=== PATIENT | male | born 1965 | race Caucasian/White ===

== ENCOUNTER 2019-12-21 10:46 | Observation (INO) ==
[2019-12-21] MEDS ORDERED: SODIUM CHLORIDE 0.9% 500 ML IV SCH (12:15)
[2019-12-21 12:25] LABS: Basophils # (auto) 0.01 K/uL (0-0.2); Basophils % (auto) 0.1 %; Eosinophils # (auto) 0.01 K/uL (0-0.5); Eosinophils % (auto) 0.1 %; Hematocrit (blood only) 43.7 % (42-52); Hemoglobin 15.2 g/dL (14.0-18.0); Immature Granulocytes # (auto) 0.03 K/uL (0.00-0.02); Immature Granulocytes % (auto) 0.2 %; Lymphocytes # (auto) 1.49 K/uL (1.2-3.4); Lymphocytes % (auto) 10.9 %; Mean Corpuscular Hemoglobin 29.1 pg (25-34); Mean Corpuscular Hgb Conc 34.8 g/dL (32-36); Mean Corpuscular Volume 83.6 fL (80-100); Mean Platelet Volume 10.4 fL (7.4-10.4); Monocytes # (auto) 0.62 K/uL (0.11-0.59); Monocytes % (auto) 4.5 %; Neutrophils # (auto) 11.52 K/uL (1.4-6.5); Neutrophils % (auto) 84.2 %; Platelet Count 188 K/uL (130-400); RDW Coefficient of Variation 13.5 % (11.5-14.5); RDW Standard Deviation 40.8 fL (36.4-46.3); Red Blood Count 5.23 M/uL (4.7-6.1); White Blood Count 13.68 K/uL (4.8-10.8)
[2019-12-21 12:34] LABS: Albumin Level 3.6 gm/dl (3.4-5.0); BUN Creatinine Ratio 11.2 (10-20); Calcium 8.6 mg/dl (8.5-10.1); Creatinine Clr Calc Pharmacy 128.4 ml/min; Est GFR (African American) 100.4; Est GFR (Non-African American) 86.6; Potassium 3.5 mmol/L (3.5-5.1)
[2019-12-21 12:37] LABS: Bilirubin,Total 1.2 mg/dl (0.2-1); Globulin 3.7 gm/dl (2.5-4.0); Total Protein 7.3 gm/dl (6.4-8.2)
--- NOTE | 2019-12-21 12:44 | Emergency Department Note ---
History of Present Illness General Chief Complaint: Abdominal Pain Stated Complaint: ABD PAIN Time Seen by Provider: 12/21/19 11:49 Source: patient Mode of arrival: ambulatory Limitations: no limitations History of Present Illness Provider Complaint: abdominal pain Maximum Pain Intensity: 6 This is a 54-year-old male who presents to the ED with a chief complaint of left upper quadrant abdominal pain. The patient states that it awoke him around 2 AM. He states that his abdomen felt as though he had to have diarrhea. He did not have any diarrhea and was able to fall back asleep. He awoke again at 4 AM with severe abdominal pain that he describes as a pressure. He states that he had a small bowel movement. He went back to sleep and then was awoken again with the pain around 6:30 AM. He describes it as a pressure rate now and 7 out of 10. It seemed to be worsening so he came to the ED for evaluation. The patient states that he occasionally has nausea with the pain but does not have nausea now. He states that it felt tender all over when he would push on it. The patient denies any abdominal surgeries previously. He takes medication for high blood pressure. Nothing seems to make the pain better or worse. Home Medications Home Medications Medication Instructions Recorded Confirmed Type Calcium And Magnesium For Bone 1 tab PO BID 12/21/19 12/21/19 History Sweet Elliott 2 tab PO HS 12/21/19 12/21/19 History Trace Minerals 1 oz PO BID 12/21/19 12/21/19 History cetirizine [Zyrtec] 10 mg PO HS 12/21/19 12/21/19 History cholecalciferol (vitamin D3) 125 mcg PO HS 12/21/19 12/21/19 History [Vitamin D3] coenzyme Q10 100 mg PO BID 12/21/19 12/21/19 History metoprolol succinate 100 mg PO QAM 12/21/19 12/21/19 History mometasone 1 spray INTRANASAL BID 12/21/19 12/21/19 History multivitamin 5 ml PO QAM 12/21/19 12/21/19 History omega 6-vih-vuh-fish oil [Fish Oil] 2 cap PO BID 12/21/19 12/21/19 History selenium 0 mcg PO QDD 12/21/19 12/21/19 History vitamin K2 40 mcg PO QDD 12/21/19 12/21/19 History Allergies Allergy/AdvReac Type Severity Reaction Status Date / Time No Known Allergies Allergy Unverified 12/21/19 13:39 Past Med/Surg History Social History Smoking Status: Never smoker Feels Safe at Home: Yes Review of Systems A total of 10 systems reviewed and were otherwise negative Physical Exam Vital Signs: Vital Signs - 24 hr 12/21/19 11:18 12/21/19 11:36 12/21/19 11:40 Temperature 36.8 C Temperature Source Oral Pulse Rate 90 77 74 Respiratory Rate 28 H 20 15 Blood Pressure 131/77 167/92 H Blood Pressure Rosemarie n 95 118 Pulse Oximetry 100 Oxygen Delivery Me thod Room Air Sepsis Recent Feve r Within 48 Hours No Sepsis New/Unexpla ined Change in Men amber Status N/A Sepsis Action Take n by Nursing No Action Required 12/21/19 11:51 12/21/19 12:00 12/21/19 12:10 Temperature Temperature Source Pulse Rate 76 78 76 Respiratory Rate Blood Pressure 183/92 H Blood Pressure Rosemarie n 109 Pulse Oximetry Oxygen Delivery Me thod Sepsis Recent Feve r Within 48 Hours Sepsis New/Unexpla ined Change in Men amber Status Sepsis Action Take n by Nursing 12/21/19 12:11 12/21/19 12:21 12/21/19 12:30 Temperature Temperature Source Pulse Rate 78 80 Respiratory Rate Blood Pressure 167/89 H Blood Pressure Rosemarie n 102 Pulse Oximetry Oxygen Delivery Me thod Room Air Sepsis Recent Feve r Within 48 Hours Sepsis New/Unexpla ined Change in Men amber Status Sepsis Action Take n by Nursing 12/21/19 12:46 12/21/19 12:51 12/21/19 13:00 Temperature Temperature Source Pulse Rate 81 79 79 Respiratory Rate 18 Blood Pressure 167/80 H Blood Pressure Rosemarie n 96 Pulse Oximetry Oxygen Delivery Me thod Sepsis Recent Feve r Within 48 Hours Sepsis New/Unexpla ined Change in Men amber Status Sepsis Action Take n by Nursing 12/21/19 13:10 12/21/19 13:20 12/21/19 13:30 Temperature Temperature Source Pulse Rate 80 83 84 Respiratory Rate 22 Blood Pressure 173/83 H Blood Pressure Rosemarie n 105 Pulse Oximetry Oxygen Delivery Me thod Sepsis Recent Feve r Within 48 Hours Sepsis New/Unexpla ined Change in Men amber Status Sepsis Action Take n by Nursing 12/21/19 13:32 12/21/19 13:40 Temperature Temperature Source Pulse Rate 82 78 Respiratory Rate Blood Pressure Blood Pressure Rosemarie n Pulse Oximetry Oxygen Delivery Ms thod Sepsis Recent Feve r Within 48 Hours Sepsis New/Unexpla ined Change in Men amber Status Sepsis Action Take n by Nursing Physical Exam: CONSTITUTIONAL/VITAL SIGNS: Reviewed / noted above. GENERAL: Non-toxic in appearance. INTEGUMENTARY: Warm, dry, and [place]. HEAD: Normocephalic. EYES: without scleral icterus or trauma. ENT/OROPHARYNX: clear and moist. LYMPHADENOPATHY/NECK: Is supple without lymphadenopathy or meningismus. RESPIRATORY: Lungs clear and equal. CARDIOVASCULAR: Regular rate and rhythm. GI/ABDOMEN: Soft and diffusely tender. No organomegaly or pulsatile mass. No rebound or guarding. Slightly hypoactive bowel sounds. EXTREMITIES: Warm and well perfused. BACK: No CVA tenderness. NEUROLOGICAL: Intact without focal deficits. PSYCHIATRIC: normal affect. MUSCULOSKELETAL: Normally developed with good muscle tone. TRIAGE NURSING DOCUMENTATION REVIEWED. Course Administered Medications Discontinued Medications Sodium Chloride (Nss) 500 mls @ 999 mls/hr IV .Q31M BABAR Stop: 12/21/19 12:45 Last Infusion: 12/21/19 14:15 Dose: 0 mls/hr Documented by: [id number] Admin: 12/21/19 13:22 Dose: 999 mls/hr Documented by: [id number] Medical Decision Making Differential Diagnosis Differential considered: pancreatitis, hepatitis, acute cholecystitis, AAA, UTI, pyelonephritis, kidney stones, appendicitis, diverticulitis, shingles, bowel obstruction, mesenteric ischemia, intussusception,hernia, testicular torsion. Medical Records Attestation: I reviewed the patient's medical records. Home Medications Current Medication List: was personally reviewed by me Laboratory Data Attestation: I reviewed the patient's lab results. Result diagrams: 12/21/19 11:33 12/21/19 11:33 Lab Results 12/21/19 12/21/19 Range/Units 11:33 11:33 WBC 13.68 H (4.8-10.8) K/uL RBC 5.23 (4.7-6.1) M/uL Hgb 15.2 (14.0-18.0) g/dL Hct 43.7 (42-52) % MCV 83.6 (80-100) fL MCH 29.1 (25-34) pg MCHC 34.8 (32-36) g/dL RDW Std Deviation 40.8 (36.4-46.3) fL RDW Coeff of Jona 13.5 (11.5-14.5) % Plt Count 188 (130-400) K/uL MPV 10.4 (7.4-10.4) fL Immature Gran % (Auto) 0.2 % Neut % (Auto) 84.2 % Lymph % (Auto) 10.9 % [place] % (Auto) 4.5 % Eos % (Auto) 0.1 % Baso % (Auto) 0.1 % Neut # (Auto) 11.52 H (1.4-6.5) K/uL Lymph # (Auto) 1.49 (1.2-3.4) K/uL [place] # (Auto) 0.62 H (0.11-0.59) K/uL Eos # (Auto) 0.01 (0-0.5) K/uL Baso # (Auto) 0.01 (0-0.2) K/uL Immature Gran # (Auto) 0.03 H (0.00-0.02) K/uL Sodium 138 (136-145) mmol/L Potassium 3.5 (3.5-5.1) mmol/L Chloride 107 (98-107) mmol/L Carbon Dioxide 22 (21-32) mmol/L Anion Gap 9.0 (3-11) BUN 11 (7-18) mg/dl Creatinine 0.99 (0.6-1.4) mg/dl Est Cr Clr Drug Dosing 128.4 ml/min Est GFR ( Amer) 100.4 Est GFR (Non-Af Amer) 86.6 BUN/Creatinine Ratio 11.2 (10-20) Glucose 139 H (70-99) mg/dl Calcium 8.6 (8.5-10.1) mg/dl Total Bilirubin 1.2 H (0.2-1) mg/dl AST 11 L (15-37) U/L ALT 32 (12-78) U/L Alkaline Phosphatase 65 (45-117) U/L Total Protein 7.3 (6.4-8.2) gm/dl Albumin 3.6 (3.4-5.0) gm/dl Globulin 3.7 (2.5-4.0) gm/dl Albumin/Globulin Ratio 1.0 (0.9-2) Lipase 101 (73-393) U/L Imaging Data Radiologist's Impression: IMPRESSION: CT findings indicative of acute appendicitis. Prescription Drug Monitoring [place] Drug Monitoring Program reviewed and no issues identified Blood Pressure Blood Pressure Findings: Normal blood pressure MDM Narrative The patient presents with diffuse abdominal pain that started at 2 AM. He had some associated nausea. A little diarrhea at 4 AM. Denies any other complaints at this time. The patient's blood work reveals a slight elevation of the white blood cell count. Chemistry panel was unremarkable. CT scan of the abdomen pelvis reveals acute appendicitis. I spoke with general surgery. They will see the patient. Impression & Plan Acute appendicitis Discharge Plan Visit Data Chief Complaint: Abdominal Pain Stated Complaint: ABD PAIN ED Provider: Tim Velasco Discharge Problem: Acute appendicitis Patient Disposition: Being Evaluated by Surgeon Forms Stand Alone Forms: My [facility] Prescriptions Prescriptions: No Action multivitamin Liquid 5 ml PO QAM RF: 0 cetirizine [Zyrtec] 10 mg Tablet 10 mg PO HS RF: 0 metoprolol succinate 100 mg tablet extended release 24 hr 100 mg PO QAM RF: 0 mometasone 50 mcg/actuation spray,non-aerosol 1 spray INTRANASAL BID RF: 0 coenzyme Q10 100 mg Capsule 100 mg PO BID RF: 0 omega 5-qrr-itt-fish oil [Fish Oil] 1,000 mg (120 mg-180 mg) Capsule 2 cap PO BID RF: 0 vitamin K2 40 mcg Tablet 40 mcg PO QDD RF: 0 Calcium And Magnesium For Bone 1 tab PO BID RF: 0 Trace Minerals 1 oz PO BID RF: 0 selenium 200 mcg Tablet 0 mcg PO QDD RF: 0 cholecalciferol (vitamin D3) [Vitamin D3] 125 mcg (5,000 unit) Tablet 125 mcg PO HS RF: 0 Sweet Elliott 2 tab PO HS RF: 0 Referrals Referrals: PCP,NO [Primary Care Provider] - Discharge Problem: Acute appendicitis Qualifiers: Acute appendicitis type: with generalized peritonitis Appendicitis gangrene presence: without gangrene Appendicitis perforation presence: unspecified whether perforation present Appendicitis abscess presence: without abscess Qualified Code(s): K35.20 - Acute appendicitis with generalized peritonitis, without abscess
--- NOTE | 2019-12-21 12:52 | CT Scan Report ---
CT SCAN OF THE ABDOMEN AND PELVIS WITHOUT CONTRAST CLINICAL HISTORY: diffuse abd pain COMPARISON STUDY: No previous studies for comparison. TECHNIQUE: CT scan of the abdomen and pelvis was performed from the lung bases to the proximal femurs . Images are reviewed in the axial, sagittal, and coronal planes. IV contrast was not administered fo r this examination. A dose lowering technique was utilized adhering to the principles of ALARA. CT DOSE: 1778.42 mGy.cm FINDINGS: Lower chest: There is respiratory motion artifact. There are basilar opacities statistically atelecta tic Liver: There is hepatic steatosis. No masses are visualized on this noncontrast study. Gallbladder: Unremarkable. Spleen: Normal in size and attenuation. Pancreas: Unremarkable. Adrenal glands: Unremarkable. Kidneys: No renal, ureteral, or bladder calculi are visualized. Bowel: There are no transition zones to indicate bowel obstruction. There is a dilated fluid-filled a ppendix containing an appendicolith. There is periappendiceal stranding. The appendix measures 16 mm in diameter. The findings are indicative of acute appendicitis. Peritoneum: There is no intraperitoneal free air or abdominal ascites. There is minimal upper abdomin al central mesenteric haziness. Vasculature: The abdominal aorta is normal in course and caliber. Adenopathy: None. Pelvic viscera: The bladder, and pelvic viscera are unremarkable. Skeletal structures: No destructive osseous lesions are seen. IMPRESSION: CT findings indicative of acute appendicitis. ACT 112: Negative or not required by law. Electronically signed by: Tu Garcia M.D. 12/21/2019 12:50 PM
--- NOTE | 2019-12-21 15:05 | Electrocardiogram Report ---
Test Reason : Blood Pressure : / mmHG Vent. Rate : 088 BPM Atrial Rate : 088 BPM P-R Int : 146 ms QRS Dur : 098 ms QT Int : 384 ms P-R-T Axes : 018 005 025 degrees QTc Int : 464 ms Normal sinus rhythm Normal ECG No previous ECGs available Confirmed by Brad Roldan ([id number]) on 12/21/2019 3:05:21 PM Referred By: REFERRED SELF Confirmed By:Brad Roldan
[2019-12-21] MEDS ORDERED: cefOXitin 2,000 MG in DEXTROSE 5% 50 ML IV STA (15:07)
--- NOTE | 2019-12-21 15:07 | History & Physical Report ---
Date of Service December 21, 2019 Assessment & Plan (1) Acute appendicitis: 54 year-old male with less than 24 hour history of sudden onset of generalized abdominal pain with associated nausea and diarrhea. Leukocytosis of 13k. CT scan of abd/pelvis showing dilated fluid-filled appendix measurin 16 mm with appendicolith and periappendiceal stranding consistent with acute appendicitis. Plan: Plan for laparoscopic appendectomy possible open with Dr. Grimaldo. Dr. Grimaldo discussed procedure and risks and informed consent obtained. Keep NPO 2 gms Cefoxitin preop Med/surg postop Likely discharge tomorrow if procedure straight forward. Dr. Grimaldo saw patient , examined patient, and agrees with above. I ( Yecenia Grimaldo MD ) did D/W with pt about laparoscopic appendectomy possible open, D/W benefits, risks and alternatives of the surgery, the risks - infection, bleeding, abscess, injury other organs, small bowel obstruction, pt understood, he agrees with the surgery, I answered all questions, History of Present Illness Chief Complaint: Abdominal pain Primary Care Provider: NO PCP Agustin is a 54 year-old male who presented to emergency department with complaint of abdominal pain that suddenly woke him up at night around 2 am originally. Continued to increase in severity throughout the night and not improve. Pain mostly generalized. Had some nausea but no vomiting. Had some diarrhea. Has not had this type of pain before. No prior abdominal surgeries. Has not had anything to eat since last evening and had 16 ounces of fluids this morning around 6 am. Er work-up included labs which showed leukocytosis of 13K. CT scan of abdomen and pelvis without contrast showing dilated appendix at 13 mm with appendicolith. No signs of perforation or abscess. Allergies Allergy/AdvReac Type Severity Reaction Status Date / Time No Known Allergies Allergy Unverified 12/21/19 13:39 Home Medications Home Medications Medication Instructions Recorded Confirmed Type Calcium And Magnesium For Bone 1 tab PO BID 12/21/19 12/21/19 History Sweet Elliott 2 tab PO HS 12/21/19 12/21/19 History Trace Minerals 1 oz PO BID 12/21/19 12/21/19 History cetirizine [Zyrtec] 10 mg PO HS 12/21/19 12/21/19 History cholecalciferol (vitamin D3) 125 mcg PO HS 12/21/19 12/21/19 History [Vitamin D3] coenzyme Q10 100 mg PO BID 12/21/19 12/21/19 History metoprolol succinate 100 mg PO QAM 12/21/19 12/21/19 History mometasone 1 spray INTRANASAL BID 12/21/19 12/21/19 History multivitamin 5 ml PO QAM 12/21/19 12/21/19 History omega 1-yen-kmj-fish oil [Fish Oil] 2 cap PO BID 12/21/19 12/21/19 History selenium 0 mcg PO QDD 12/21/19 12/21/19 History vitamin K2 40 mcg PO QDD 12/21/19 12/21/19 History Past Med/Surg History Medical History (Updated 12/21/19 @ 15:04 by Monik Parker PA-C) Hypertension Sleep apnea Social History Smoking Status: Never smoker Feels Safe at Home: Yes Review of Systems Review of Systems: All systems reviewed & are unremarkable except as noted in HPI & below Physical Exam Constitutional: WD/WN, vitals as above + morbidly obese; no acute distress and not ill appearing Respiratory: normal respiratory effort, lungs clear to auscultation Cardiovascular: Rate/Rhythm: regular rate, regular rhythm and + tachycardic Heart Sounds: normal S1 and normal S2 Gastrointestinal (Abdomen): Inspection/Auscultation: abdomen normal to inspection; abdomen not distended Percussion/Palpation: + abdomen tender and abdomen soft; no guarding and abdomen not rigid Skin: no rashes, warm and dry Psychiatric: A+Ox3, euthymic affect Results & Data Results & Data ([facility]) Vital Signs (Past 12 Hours) Vital Signs Temp Pulse Resp BP Pulse Ox 12/21/19 13:40 78 12/21/19 13:32 82 12/21/19 13:30 84 173/83 H 12/21/19 13:20 83 22 12/21/19 13:10 80 12/21/19 13:00 79 167/80 H 12/21/19 12:51 79 18 12/21/19 12:46 81 12/21/19 12:30 80 167/89 H 12/21/19 12:21 78 12/21/19 12:10 76 12/21/19 12:00 78 183/92 H 12/21/19 11:51 76 12/21/19 11:40 74 15 12/21/19 11:36 77 20 167/92 H 12/21/19 11:18 36.8 C 90 28 H 131/77 100 Laboratory Results 12/21/19 12/21/19 Range/Units 11:33 11:33 WBC 13.68 H (4.8-10.8) K/uL RBC 5.23 (4.7-6.1) M/uL Hgb 15.2 (14.0-18.0) g/dL Hct 43.7 (42-52) % MCV 83.6 (80-100) fL MCH 29.1 (25-34) pg MCHC 34.8 (32-36) g/dL RDW Std Deviation 40.8 (36.4-46.3) fL RDW Coeff of Jona 13.5 (11.5-14.5) % Plt Count 188 (130-400) K/uL MPV 10.4 (7.4-10.4) fL Immature Gran % (Auto) 0.2 % Neut % (Auto) 84.2 % Lymph % (Auto) 10.9 % [place] % (Auto) 4.5 % Eos % (Auto) 0.1 % Baso % (Auto) 0.1 % Neut # (Auto) 11.52 H (1.4-6.5) K/uL Lymph # (Auto) 1.49 (1.2-3.4) K/uL [place] # (Auto) 0.62 H (0.11-0.59) K/uL Eos # (Auto) 0.01 (0-0.5) K/uL Baso # (Auto) 0.01 (0-0.2) K/uL Immature Gran # (Auto) 0.03 H (0.00-0.02) K/uL Sodium 138 (136-145) mmol/L Potassium 3.5 (3.5-5.1) mmol/L Chloride 107 (98-107) mmol/L Carbon Dioxide 22 (21-32) mmol/L Anion Gap 9.0 (3-11) BUN 11 (7-18) mg/dl Creatinine 0.99 (0.6-1.4) mg/dl Est Cr Clr Drug Dosing 128.4 ml/min Est GFR ( Amer) 100.4 Est GFR (Non-Af Amer) 86.6 BUN/Creatinine Ratio 11.2 (10-20) Glucose 139 H (70-99) mg/dl Calcium 8.6 (8.5-10.1) mg/dl Total Bilirubin 1.2 H (0.2-1) mg/dl AST 11 L (15-37) U/L ALT 32 (12-78) U/L Alkaline Phosphatase 65 (45-117) U/L Total Protein 7.3 (6.4-8.2) gm/dl Albumin 3.6 (3.4-5.0) gm/dl Globulin 3.7 (2.5-4.0) gm/dl Albumin/Globulin Ratio 1.0 (0.9-2) Lipase 101 (73-393) U/L Diagnostic Findings CT SCAN OF THE ABDOMEN AND PELVIS WITHOUT CONTRAST CLINICAL HISTORY: diffuse abd pain COMPARISON STUDY: No previous studies for comparison. TECHNIQUE: CT scan of the abdomen and pelvis was performed from the lung bases to the proximal femurs. Images are reviewed in the axial, sagittal, and coronal planes. IV contrast was not administered for this examination. A dose lowering technique was utilized adhering to the principles of ALARA. CT DOSE: 1778.42 mGy.cm FINDINGS: Lower chest: There is respiratory motion artifact. There are basilar opacities statistically atelectatic Liver: There is hepatic steatosis. No masses are visualized on this noncontrast study. Gallbladder: Unremarkable. Spleen: Normal in size and attenuation. Pancreas: Unremarkable. Adrenal glands: Unremarkable. Kidneys: No renal, ureteral, or bladder calculi are visualized. Bowel: There are no transition zones to indicate bowel obstruction. There is a dilated fluid-filled appendix containing an appendicolith. There is periappendiceal stranding. The appendix measures 16 mm in diameter. The findings are indicative of acute appendicitis. Peritoneum: There is no intraperitoneal free air or abdominal ascites. There is minimal upper abdominal central mesenteric haziness. Vasculature: The abdominal aorta is normal in course and caliber. Adenopathy: None. Pelvic viscera: The bladder, and pelvic viscera are unremarkable. Skeletal structures: No destructive osseous lesions are seen. IMPRESSION: CT findings indicative of acute appendicitis. Code Status & VTE Plan VTE Prophylaxis Plan VTE Prophylaxis will be ordered: Yes (1) Acute appendicitis Acute appendicitis type: with generalized peritonitis Appendicitis abscess presence: without abscess Appendicitis gangrene presence: without gangrene Appendicitis perforation presence: unspecified whether perforation present Qualified Code(s): K35.20 - Acute appendicitis with generalized peritonitis, without abscess
[2019-12-21] MEDS ORDERED: BACITRACIN OINT 15 GM TUBE ONE (16:49)
[2019-12-21] MEDS ORDERED: BUPIVACAINE 0.5 % 5 MG/1 ML MPF 30ML VIAL ONE (16:50)
[2019-12-21] MEDS ORDERED: LIDOCAINE HCL 1% 20 ML VIAL ONE (16:50)
[2019-12-21] MEDS ORDERED: ONDANSETRON INJ 2 MG/ML 2 ML VIAL IV PRN ×2 (17:26→19:00)
[2019-12-21] MEDS ORDERED: ATROPINE SULFATE 0.1 MG/ML 10ML SYR IV PRN (17:26)
[2019-12-21] MEDS ORDERED: PROMETHAZINE HCL 12.5 MG in SODIUM CHLORIDE 0.9% 50 ML IV PRN (17:26)
[2019-12-21] MEDS ORDERED: ePHEDrine sulfate 50 MG/ML AMP IV PRN (17:26)
[2019-12-21] MEDS ORDERED: HYDROmorphone INJ 2 MG/ML SYR/VIAL IV PRN (17:26)
[2019-12-21] MEDS ORDERED: fentaNYL citrate 100 MCG/2 ML VIAL IV PRN (17:26)
--- NOTE | 2019-12-21 17:26 | Anesthesiology Consultation ---
Date of Service December 21, 2019 Assessment & Plan ASA ASA3 Proposed Anesthesia Anesthesia Type: General Risk / Benefits Reviewed With: PT / POA / Parent / Guardian, Accepts Plan and Informed Consent Obtained History Surgery Operation Date: 12/21/19 11:55 Proposed Procedures p Laparoscopic Appendectomy - Yecenia Grimaldo MD Height/Weight Height: 5 ft 11 in Weight: 150 kg Allergies Allergy/AdvReac Type Severity Reaction Status Date / Time No Known Allergies Allergy Unverified 12/21/19 13:39 Medications Home Medications Medication Instructions Recorded Confirmed Last Taken Calcium And Magnesium For Bone 1 tab PO BID 12/21/19 12/21/19 12/20/19 Sweet Elliott 2 tab PO HS 12/21/19 12/21/19 12/20/19 Trace Minerals 1 oz PO BID 12/21/19 12/21/19 12/20/19 cetirizine [Zyrtec] 10 mg PO HS 12/21/19 12/21/19 12/20/19 cholecalciferol (vitamin D3) 125 mcg PO HS 12/21/19 12/21/19 12/20/19 [Vitamin D3] coenzyme Q10 100 mg PO BID 12/21/19 12/21/19 12/20/19 metoprolol succinate 100 mg PO QAM 12/21/19 12/21/19 12/20/19 mometasone 1 spray INTRANASAL BID 12/21/19 12/21/19 12/20/19 multivitamin 5 ml PO QAM 12/21/19 12/21/19 12/20/19 omega 5-owv-nro-fish oil [Fish Oil] 2 cap PO BID 12/21/19 12/21/19 12/20/19 selenium 0 mcg PO QDD 12/21/19 12/21/19 12/20/19 vitamin K2 40 mcg PO QDD 12/21/19 12/21/19 12/20/19 NPO Date Last Intake of Fluids: 12/21/19 Time Last Intake of Fluids: 07:30 Date Last Intake of Solids: 12/20/19 Time Last Intake of Solids: 18:00 Past Medical History Medical History Hypertension Sleep apnea Exercise / Class Metabolic Activity II 4-5 Yardwork/Stairs/Walk up hill Past Anesthesia History No Hx of Anesthesia Complications and No Family Hx of Anesthesia Complications History of PONV No Hx of PONV and No Hx of Motion Sickness Social History Smoking Status: Never smoker Review of Systems denies fever/cough/ colds/ chest pain/ SOB/ WALTER Constitutional: no fever and no chills Respiratory: no cough and no dyspnea denies WALTER Cardiovascular: no chest pain and no dyspnea on exertion Physical Exam Vital Signs Last Vital Signs Temp 37.3 C 12/21/19 17:09 Pulse 102 H 12/21/19 17:09 Resp 18 12/21/19 17:09 BP 199/106 H 12/21/19 17:09 Pulse Ox 98 12/21/19 17:09 ENMT Mouth: no TMJ abnormality and no dentition abnormality Thyromental Distance: > or= 3.5 Finger Breadths Mallampati Class: II Neck + thick neck and + facial hair; neck extension not limited Respiratory normal respiratory effort; no respiratory distress Auscultation: lungs clear to auscultation bilaterally Cardiovascular Rate/Rhythm: regular rate and regular rhythm Neurologic moves all extremities Psychiatric Orientation: alert and oriented x 3 Testing Laboratory Results 12/21/19 11:33 12/21/19 11:33
[2019-12-21] MEDS ORDERED: fentaNYL citrate 100 MCG/2 ML VIAL ONE ×2 (17:42→18:08)
[2019-12-21] MEDS ORDERED: PROPOFOL IV EMULSION 10 MG/ML 20 ML VIAL IV ONE (17:42)
[2019-12-21] MEDS ORDERED: LIDOCAINE 2% 20 MG/ML 5 ML SYR IV ONE (17:42)
[2019-12-21] MEDS ORDERED: MIDAZOLAM HCL 1 MG/ML 2ML VIAL ONE (17:42)
[2019-12-21] MEDS ORDERED: ROCURONIUM BROMIDE 10 MG/ML 5 ML VIAL IV ONE (17:42)
[2019-12-21] MEDS ORDERED: SUCCINYLCHOLINE 100MG/5ML SYR IV ONE (18:08)
[2019-12-21] MEDS ORDERED: KETOROLAC 30 MG/ML VIAL ONE (18:08)
[2019-12-21] MEDS ORDERED: DEXAMETHASONE SOD INJ 4 MG/ML VIAL ONE (18:08)
[2019-12-21] MEDS ORDERED: SUCCINYLCHOLINE CHLORIDE 20 MG/ML 10 ML VIAL IV ONE (18:08)
[2019-12-21] MEDS ORDERED: ONDANSETRON INJ 2 MG/ML 2 ML VIAL ONE (18:08)
[2019-12-21] MEDS ORDERED: LARYING-O-JET KIT (LTA) ONE (18:09)
[2019-12-21] MEDS ORDERED: LABETALOL HCL IV 5 MG/ML 20ML IV ONE (18:25)
[2019-12-21] MEDS ORDERED: NEOSTIGMINE METHYLSULFATE 5 MG/5 ML SYR ONE (18:43)
[2019-12-21] MEDS ORDERED: GLYCOPYRROLATE 0.2 MG/ML VIAL ONE (18:43)
--- NOTE | 2019-12-21 18:55 | Post Operative Brief Note ---
Immediate Post Op Note v1 Date of Surgery December 21, 2019 Pre & Post Diagnosis Operation Date: 12/21/19 11:55 Pre-Op Diagnosis: Acute appendicitis post-op diagnosis: acute appendicitis I identified the patient and participated in the time-out.: Yes Procedure Operation Date: 12/21/19 11:55 Actual Procedures p Laparoscopic Appendectomy - Yecenia Grimaldo MD Surgeon Yecenia Grimaldo MD Supervisor Sample surgical endoscopist Estimated Blood Loss 10 Findings Consistent with Post-Op Diagnosis significant inflammation on appendix, focal gangrene, yellow free fluid around appendix, acute appendicitis Fluids 1400ml Specimens appendix Anesthesia Type General Complications none Disposition Accompanied Patient To Recovery: Yes Disposition: Recovery Room Overlapping Procedure I was immediately available: during the entire case.
[2019-12-21] MEDS ORDERED: MEPERIDINE HCL 25 MG/ML CARP/VIAL ONE (19:05)
[2019-12-21] MEDS ORDERED: MEPERIDINE HCL 25 MG/ML CARP/VIAL IV ONE (19:09)
--- NOTE | 2019-12-21 20:24 | Anesthesiology Progress Note ---
Date of Service December 21, 2019 Anesthesia Post Procedure Vital Signs Vital Signs: Temp Pulse Pulse Resp BP BP Pulse Ox 12/21/19 20:00 93 H 16 149/84 H 97 12/21/19 19:50 37.3 C 88 16 150/84 H 97 12/21/19 19:40 90 20 137/80 99 12/21/19 19:30 99 H 20 149/84 H 95 12/21/19 19:20 98 H 22 165/85 H 99 12/21/19 19:10 96 H 20 164/87 H 99 12/21/19 19:01 37.6 C H 97 H 22 167/112 H 98 12/21/19 17:09 37.3 C 102 H 18 199/106 H 98 12/21/19 16:53 88 195/88 H 12/21/19 16:50 89 17 12/21/19 16:41 88 15 12/21/19 16:31 88 201/89 H 12/21/19 16:30 83 14 12/21/19 16:20 88 19 12/21/19 16:11 95 H 24 12/21/19 16:00 96 H 15 176/88 H 12/21/19 15:57 91 H 16 175/94 H 12/21/19 15:50 78 17 12/21/19 15:41 79 4 L 12/21/19 15:31 93 H 9 L 12/21/19 15:20 91 H 13 12/21/19 15:10 94 H 19 12/21/19 15:01 92 H 13 12/21/19 14:50 95 H 10 L 12/21/19 14:40 96 H 16 12/21/19 14:31 91 H 21 12/21/19 14:20 88 17 12/21/19 14:10 91 H 21 12/21/19 14:01 83 12/21/19 14:00 87 176/85 H 12/21/19 13:50 77 12/21/19 13:40 78 12/21/19 13:32 82 12/21/19 13:30 84 173/83 H 12/21/19 13:20 83 22 12/21/19 13:10 80 12/21/19 13:00 79 167/80 H 12/21/19 12:51 79 18 12/21/19 12:46 81 12/21/19 12:30 80 167/89 H 12/21/19 12:21 78 12/21/19 12:10 76 12/21/19 12:00 78 183/92 H 12/21/19 11:51 76 12/21/19 11:40 74 15 12/21/19 11:36 77 20 167/92 H 12/21/19 11:18 36.8 C 90 28 H 131/77 100 Pain Intensity Abdomen: Pain Intensity: 0 Transfer of Care Handoff Completed per policy Notes Mental Status: alert / awake / arousable and participated in evaluation Patient Amnestic to Procedure: Yes Nausea / Vomiting: adequately controlled Pain: adequately controlled Airway Patency, RR, SpO2: stable & adequate BP & HR: stable & adequate Hydration State: stable & adequate Anesthetic Complications: no major complications apparent and Pt Satisfied with anesthetic care
[2019-12-21] MEDS ORDERED: HYDROmorphone INJ 1 MG/ML SYRINGE IV STA (20:58)
[2019-12-21] MEDS ORDERED: OXYCODONE/ACETAMINOPHEN 5mg/325mg TAB PO PRN (20:58)
[2019-12-21] MEDS ORDERED: CHOLECALCIFEROL 1,000 UNITS 25 MCG TAB PO SCH (21:00)
[2019-12-21] MEDS ORDERED: CETIRIZINE HCL 10 MG TABLET PO SCH (21:00)
[2019-12-21] MEDS ORDERED: NON-FORMULARY MEDICATION (Coenzyme Q10 100 MG) PO SCH (21:00)
[2019-12-21] MEDS ORDERED: [UNRECOGNIZED DRUG - OTHER] PO SCH (21:00)
[2019-12-21] MEDS ORDERED: TRACE MINERALS PO SCH (21:00)
[2019-12-21] MEDS: OMEGA-3 (PURIFIED FISH OIL) 1 GM CAP PO SCH (21:37)
[2019-12-21] MEDS: CALCIUM 600MG + VIT D 400 IU TAB PO SCH (21:37)
[2019-12-21] MEDS: LACTATED RINGER'S 1,000 ML IV SCH (22:30)
[2019-12-21] MEDS: cefOXitin 2,000 MG in DEXTROSE 5% 50 ML IV SCH (23:40)
--- NOTE | 2019-12-22 02:33 | Operative Report (OR) ---
DATE OF OPERATION: 12/21/2019 PREOPERATIVE DIAGNOSIS: Acute appendicitis. POSTOPERATIVE DIAGNOSIS: Acute appendicitis. OPERATION: Laparoscopic appendectomy. SURGEON: Yecenia Grimaldo MD. ANESTHESIA: General. ESTIMATED BLOOD LOSS: About 10 mL FINDINGS: Significant inflammation on the appendix, focal gangrene, yellow free flow around the appendix, confirmed diagnosis of acute appendicitis. COMPLICATIONS: None. INDICATIONS FOR THE PROCEDURE: This is a 54-year-old gentleman who presented to ED with 1-day history of right lower quadrant pain and patient had a CT scan diagnosis of acute appendicitis. I recommended to do the laparoscopic appendectomy, possible open. I did talk to the patient and patient's about the benefit, the risk, alternate procedure. I indicated the risks may include but not limited such as bleeding, infection, abscess, injury to other organs, small-bowel obstruction. They understand. The patient signed informed consent and I answered all questions. DETAILS OF PROCEDURE: We brought the patient to the OR, put the patient in the supine position. The patient received SCD on bilateral legs to prevent DVT. Also, patient received 2 g cefoxitin IV for prophylactic antibiotic. The patient received general anesthesia without difficulty. The abdomen was prepped and draped in routine sterile fashion. After time-out, I injected local anesthesia by using 1% lidocaine mixed with 0.5% Marcaine just above the umbilicus. Then I made a small incision just above the umbilicus, opened fascia and opened peritoneum, under direct vision put a Iris trocar in, connected to CO2 to create pneumoperitoneum. Flow rate at 6 liter per minute. Pressure not more than 14 mmHg. Once we got a nice pneumoperitoneum, we put the camera in, looked around the abdomen, shows significant inflammation on the appendix, enlarged about 1.4 cm in diameter and focal gangrene, yellow free flow around the appendix, small bowel, large bowel looked normal. Once we confirmed diagnosis of acute appendicitis and I put another two 5 mm trocar on the left lower quadrant area, then we mobilized the appendix and used the harmonic to take down appendiceal, rechecked the base of appendix and then we used a 45 mm Endo-FELA staple for transection on the base of the appendix, rechecked the staple line intact and no leak, no active bleeding. Then we removed the appendix through the catch bag. Then we reinserted Iris trocar in, connected to CO2 again to create pneumoperitoneum, again looked around the abdomen, the staple line intact and no leak and no active bleeding and also we suctioned all of the yellow free flow around the appendix before we took out the appendix. Then we removed all trocar under direct vision. No active bleeding from the trocar sites. Pneumoperitoneum was released, now closed the umbilical incision, fascial layer by using #1 Vicryl [id number] x2, closed subcutaneous layer by using 2-0 Vicryl interruptedly, closed skin by using 4-0 Vicryl continuous running, closed another two 5 mm trocar site of skin only by using 4-0 Vicryl. Then, we put the dressing on. The patient tolerated the procedure well. All instrument, needle and sponge count correct x2 at the end of the case. The patient transferred to recovery room in stable condition. The specimen sent to pathology. After the procedure, I did talk to the patient's about the OR finding and procedure we did, she understands. I attest to the content of the Intraoperative Record and any orders documented therein. Any exception s are noted below.
[2019-12-22 03:22] LABS: Appearance Urine Clear (Clear); Bilirubin Urine Negative (Negative); Blood Urine Negative (Negative); Color Urine Dark Yellow; Glucose Urine UA Negative (Negative); Ketones Urine 1+ (Negative); Leukocyte Esterase Urine Negative (Negative); Nitrite Urine Negative (Negative); Protein Urine Negative (Negative); Specific Gravity Urine 1.027 (1.000-1.030); Urobilinogen Urine Negative (Negative)
[2019-12-22] MEDS: cefOXitin 2,000 MG in DEXTROSE 5% 50 ML IV SCH ×2 (06:00→12:39)
[2019-12-22 06:17] LABS: Hematocrit (blood only) 41.4 % (42-52); Hemoglobin 14.2 g/dL (14.0-18.0); Immature Granulocytes # (auto) 0.04 K/uL (0.00-0.02); Immature Granulocytes % (auto) 0.3 %; Lymphocytes # (auto) 0.94 K/uL (1.2-3.4); Lymphocytes % (auto) 7.6 %; Mean Corpuscular Hemoglobin 29.2 pg (25-34); Mean Corpuscular Hgb Conc 34.3 g/dL (32-36); Mean Platelet Volume 10.6 fL (7.4-10.4); Monocytes # (auto) 0.63 K/uL (0.11-0.59); Monocytes % (auto) 5.1 %; Neutrophils # (auto) 10.71 K/uL (1.4-6.5); Platelet Count 165 K/uL (130-400); RDW Coefficient of Variation 13.6 % (11.5-14.5); Red Blood Count 4.87 M/uL (4.7-6.1); White Blood Count 12.32 K/uL (4.8-10.8)
[2019-12-22 06:52] LABS: BUN Creatinine Ratio 13.3 (10-20); Calcium 8.2 mg/dl (8.5-10.1); Creatinine Clr Calc Pharmacy 138.1 ml/min; Est GFR (African American) 109.7; Est GFR (Non-African American) 94.6; Potassium 3.8 mmol/L (3.5-5.1)
[2019-12-22 06:55] LABS: Albumin Globulin Ratio 0.9 (0.9-2); Bilirubin,Total 0.9 mg/dl (0.2-1); Globulin 3.4 gm/dl (2.5-4.0); Total Protein 6.4 gm/dl (6.4-8.2)
[2019-12-22] MEDS ORDERED: ACETAMINOPHEN 325 MG TAB PO PRN (08:32)
--- NOTE | 2019-12-22 08:37 | Surgery Progress Note ---
Date of Service December 22, 2019 Assessment & Plan (1) Acute appendicitis: POD # 1 s/p laparoscopic appendectomy -vitals stable, afebrile this am, HTN this am has not had home metoprolol - leukocytosis improved to 12K - no n/v - minimal postop pain Plan: Okay for clear liquids will add PO Tylenol prn pain continue iv LR for now Continue IV Cefoxitin until discharge encouraged ambulating hallway may start home PO Meds now including metoprolol will re-evaluate later this morning with Dr. Grimaldo Evaluated with Dr. Grimaldo. Tolerated clear liquids ambulated hallway 8 times, no issues no postop pain feeling great plan for discharge home, home with 5 days of PO Cipro/flagyl f/u 2 weeks Admission and Anticipated Discharge Date Admission Date: December 21, 2019 Subjective Feeling good preoperative upper abdominal pain has resolved soreness at incision sites, has not had any pain medication postop no nausea or vomiting urinated but only small amount no chest pain/shortness of breath Physical Exam Constitutional: WD/WN, vitals as above + morbidly obese Respiratory: normal respiratory effort; no respiratory distress Gastrointestinal (Abdomen): Inspection/Auscultation: abdomen normal to insp ection; abdomen not distended Percussion/Palpation: + abdomen tender (mildly at incision sites, appropriate postop) and abdomen soft; no guarding and abdomen not rigid Skin: no rashes, warm and dry + incision (covered with dry dressings) Psychiatric: A+Ox3, euthymic affect Results & Data ([facility]) Vital Signs (Past 12 Hours) Vital Signs Temp Pulse Resp BP Pulse Ox 12/22/19 07:16 36.5 C 82 16 162/84 H 95 12/22/19 03:03 36.5 C 90 16 141/82 H 96 12/21/19 23:19 37.0 C 106 H 16 154/80 H 96 12/21/19 22:27 37.2 C 102 H 17 143/89 H 93 12/21/19 21:24 36.8 C 92 H 16 143/85 H 98 12/21/19 20:56 37.6 C H 99 H 17 149/84 H 93 Laboratory Results 12/22/19 12/22/19 12/22/19 Range/Units 05:56 05:56 03:15 WBC 12.32 H (4.8-10.8) K/uL RBC 4.87 (4.7-6.1) M/uL Hgb 14.2 (14.0-18.0) g/dL Hct 41.4 L (42-52) % MCV 85.0 (80-100) fL MCH 29.2 (25-34) pg MCHC 34.3 (32-36) g/dL RDW Std Deviation 42.0 (36.4-46.3) fL RDW Coeff of Jona 13.6 (11.5-14.5) % Plt Count 165 (130-400) K/uL MPV 10.6 H (7.4-10.4) fL Immature Gran % (Auto) 0.3 % Neut % (Auto) 87.0 % Lymph % (Auto) 7.6 % Orange % (Auto) 5.1 % Eos % (Auto) 0.0 % Baso % (Auto) 0.0 % Neut # (Auto) 10.71 H (1.4-6.5) K/uL Lymph # (Auto) 0.94 L (1.2-3.4) K/uL Orange # (Auto) 0.63 H (0.11-0.59) K/uL Eos # (Auto) 0.00 (0-0.5) K/uL Baso # (Auto) 0.00 (0-0.2) K/uL Immature Gran # (Auto) 0.04 H (0.00-0.02) K/uL Sodium 141 (136-145) mmol/L Potassium 3.8 (3.5-5.1) mmol/L Chloride 107 (98-107) mmol/L Carbon Dioxide 28 (21-32) mmol/L Anion Gap 6.0 (3-11) BUN 12 (7-18) mg/dl Creatinine 0.92 (0.6-1.4) mg/dl Est Cr Clr Drug Dosing 138.1 ml/min Est GFR ( Amer) 109.7 Est GFR (Non-Af Amer) 94.6 BUN/Creatinine Ratio 13.3 (10-20) Glucose 156 H (70-99) mg/dl Calcium 8.2 L (8.5-10.1) mg/dl Total Bilirubin 0.9 (0.2-1) mg/dl AST 10 L (15-37) U/L ALT 25 (12-78) U/L Alkaline Phosphatase 54 (45-117) U/L Total Protein 6.4 (6.4-8.2) gm/dl Albumin 3.0 L (3.4-5.0) gm/dl Globulin 3.4 (2.5-4.0) gm/dl Albumin/Globulin Ratio 0.9 (0.9-2) Lipase (73-393) U/L Urine Color Dark Yellow Urine Appearance Clear (Clear) Urine pH 6.0 (4.5-7.5) Ur Specific [place] 1.027 (1.000-1.030) Urine Protein Negative (Negative) Urine Glucose (UA) Negative (Negative) Urine Ketones 1+ H (Negative) Urine Blood Negative (Negative) Urine Nitrite Negative (Negative) Urine Bilirubin Negative (Negative) Urine Urobilinogen Negative (Negative) Ur Leukocyte Esterase Negative (Negative) COVID-19 Eval Order SARS-CoV-2, RNA, NAAT (NEGATIVE) 12/21/19 12/21/19 12/21/19 Range/Units 16:20 16:20 11:33 WBC (4.8-10.8) K/uL RBC (4.7-6.1) M/uL Hgb (14.0-18.0) g/dL Hct (42-52) % MCV (80-100) fL MCH (25-34) pg MCHC (32-36) g/dL RDW Std Deviation (36.4-46.3) fL RDW Coeff of Jona (11.5-14.5) % Plt Count (130-400) K/uL MPV (7.4-10.4) fL Immature Gran % (Auto) % Neut % (Auto) % Lymph % (Auto) % Orange % (Auto) % Eos % (Auto) % Baso % (Auto) % Neut # (Auto) (1.4-6.5) K/uL Lymph # (Auto) (1.2-3.4) K/uL Orange # (Auto) (0.11-0.59) K/uL Eos # (Auto) (0-0.5) K/uL Baso # (Auto) (0-0.2) K/uL Immature Gran # (Auto) (0.00-0.02) K/uL Sodium 138 (136-145) mmol/L Potassium 3.5 (3.5-5.1) mmol/L Chloride 107 (98-107) mmol/L Carbon Dioxide 22 (21-32) mmol/L Anion Gap 9.0 (3-11) BUN 11 (7-18) mg/dl Creatinine 0.99 (0.6-1.4) mg/dl Est Cr Clr Drug Dosing 128.4 ml/min Est GFR ( Amer) 100.4 Est GFR (Non-Af Amer) 86.6 BUN/Creatinine Ratio 11.2 (10-20) Glucose 139 H (70-99) mg/dl Calcium 8.6 (8.5-10.1) mg/dl Total Bilirubin 1.2 H (0.2-1) mg/dl AST 11 L (15-37) U/L ALT 32 (12-78) U/L Alkaline Phosphatase 65 (45-117) U/L Total Protein 7.3 (6.4-8.2) gm/dl Albumin 3.6 (3.4-5.0) gm/dl Globulin 3.7 (2.5-4.0) gm/dl Albumin/Globulin Ratio 1.0 (0.9-2) Lipase 101 (73-393) U/L Urine Color Urine Appearance (Clear) Urine pH (4.5-7.5) Ur Specific [place] (1.000-1.030) Urine Protein (Negative) Urine Glucose (UA) (Negative) Urine Ketones (Negative) Urine Blood (Negative) Urine Nitrite (Negative) Urine Bilirubin (Negative) Urine Urobilinogen (Negative) Ur Leukocyte Esterase (Negative) COVID-19 Eval Order Covid19 [facility]Now [facility] SARS-CoV-2, RNA, NAAT NEGATIVE (NEGATIVE) 12/21/19 Range/Units 11:33 WBC 13.68 H (4.8-10.8) K/uL RBC 5.23 (4.7-6.1) M/uL Hgb 15.2 (14.0-18.0) g/dL Hct 43.7 (42-52) % MCV 83.6 (80-100) fL MCH 29.1 (25-34) pg MCHC 34.8 (32-36) g/dL RDW Std Deviation 40.8 (36.4-46.3) fL RDW Coeff of Jona 13.5 (11.5-14.5) % Plt Count 188 (130-400) K/uL MPV 10.4 (7.4-10.4) fL Immature Gran % (Auto) 0.2 % Neut % (Auto) 84.2 % Lymph % (Auto) 10.9 % Orange % (Auto) 4.5 % Eos % (Auto) 0.1 % Baso % (Auto) 0.1 % Neut # (Auto) 11.52 H (1.4-6.5) K/uL Lymph # (Auto) 1.49 (1.2-3.4) K/uL Orange # (Auto) 0.62 H (0.11-0.59) K/uL Eos # (Auto) 0.01 (0-0.5) K/uL Baso # (Auto) 0.01 (0-0.2) K/uL Immature Gran # (Auto) 0.03 H (0.00-0.02) K/uL Sodium (136-145) mmol/L Potassium (3.5-5.1) mmol/L Chloride (98-107) mmol/L Carbon Dioxide (21-32) mmol/L Anion Gap (3-11) BUN (7-18) mg/dl Creatinine (0.6-1.4) mg/dl Est Cr Clr Drug Dosing ml/min Est GFR ( Amer) Est GFR (Non-Af Amer) BUN/Creatinine Ratio (10-20) Glucose (70-99) mg/dl Calcium (8.5-10.1) mg/dl Total Bilirubin (0.2-1) mg/dl AST (15-37) U/L ALT (12-78) U/L Alkaline Phosphatase (45-117) U/L Total Protein (6.4-8.2) gm/dl Albumin (3.4-5.0) gm/dl Globulin (2.5-4.0) gm/dl Albumin/Globulin Ratio (0.9-2) Lipase (73-393) U/L Urine Color Urine Appearance (Clear) Urine pH (4.5-7.5) Ur Specific [place] (1.000-1.030) Urine Protein (Negative) Urine Glucose (UA) (Negative) Urine Ketones (Negative) Urine Blood (Negative) Urine Nitrite (Negative) Urine Bilirubin (Negative) Urine Urobilinogen (Negative) Ur Leukocyte Esterase (Negative) COVID-19 Eval Order SARS-CoV-2, RNA, NAAT (NEGATIVE) (1) Acute appendicitis Acute appendicitis type: with generalized peritonitis Appendicitis abscess presence: without abscess Appendicitis gangrene presence: without gangrene Appendicitis perforation presence: unspecified whether perforation present Qualified Code(s): K35.20 - Acute appendicitis with generalized peritonitis, without abscess
[2019-12-22] MEDS: OMEGA-3 (PURIFIED FISH OIL) 1 GM CAP PO SCH (08:50)
[2019-12-22] MEDS: CALCIUM 600MG + VIT D 400 IU TAB PO SCH (08:52)
[2019-12-22] MEDS ORDERED: MULTIVITAMINS W/MINERALS LIQUID PO SCH (09:00)
[2019-12-22] MEDS ORDERED: METOPROLOL SUCC 50MG EXT REL TAB PO SCH (09:00)
[2019-12-22] MEDS ORDERED: FLUTICASONE PROPIONATE NA SPR 16 GM BTL SCH (09:00)
[2019-12-22] MEDS: LACTATED RINGER'S 1,000 ML IV SCH (09:36)
--- NOTE | 2019-12-22 11:07 | Discharge Summary ---
Date of Service December 22, 2019 Admission HPI Per Admitting Provider Agustin is a 54 year-old male who presented to emergency department with complaint of abdominal pain that suddenly woke him up at night around 2 am originally. Continued to increase in severity throughout the night and not improve. Pain mostly generalized. Had some nausea but no vomiting. Had some diarrhea. Has not had this type of pain before. No prior abdominal surgeries. Has not had anything to eat since last evening and had 16 ounces of fluids this morning around 6 am. Er work-up included labs which showed leukocytosis of 13K. CT scan of abdomen and pelvis without contrast showing dilated appendix at 13 mm with appendicolith. No signs of perforation or abscess. Principal Diagnosis Acute appendicitis Discharge Data Allergies Allergy/AdvReac Type Severity Reaction Status Date / Time No Known Allergies Allergy Unverified 12/21/19 13:39 Consultations 12/21/19 15:18 ED Decision to Admit Stat Procedures Performed Operation Date: 12/21/19 11:55 Actual Procedures p Laparoscopic Appendectomy(Not Applicable) - Yecenia Grimaldo MD Ordered Studies 12/21/19 12:11 CT abd pelvis wo con Stat Hospital Course (1) Acute appendicitis: Patient was taken to operating room from emergency department for laparoscopic appendectomy by Dr. Grimaldo on 12/21/2019. Patient was found to have significant appendicitis with gangrene changes and some fluid surrounding appendix but not abscess or perforation. Patient tolerated procedure well and was transferred to recovery room and then to medical/surgical floor for postoperative care. IV fluids at 100 mls/hr, IV Cefoxitin for postop abx was continued, PO Percocet prn pain as needed, activity as tolerated, and kept NPO. POD # 1 vitals stable, afebrile, no postop pain, no n/v. Encouraged to ambulate in hallway. Diet advanced to clear liquids. Patient tolerated diet and ambulated without difficulty. Had no postop pain and no pain medication after the procedure. Patient discharged home in afternoon on POD # 1 . Total Time Total Time Spent Total Time Spent (In Minutes): 30 Total Time Includes: Examination of the Patient, Discharge Planning and Medication Reconciliation Discharge Plan Discharge Items Patient Disposition: Home - Self-Care Reason For Visit: ACUTE ABDOMINAL PAIN Discharge Diagnosis: Acute appendicitis Activity: Per Instructions section Non-emergency contact: Surgeon Call non-emergency contact if: your pain is not controlled, your pain is worsening, your pain is concerning for you, you have a fever, your temperature is above 101, your wound has increased redness, your wound has increased drainage and your wound pain has increased Follow-up/Referrals: [facility]PRYAN [Primary Care Provider] - Diet: Regular Addtl Attending Provider Instructions: Post-Surgical ~Discharge Instructions Activity Recommendations: - lifting limitation: (25 pounds for 4 weeks), - exercise/sex/sports limit: (nonstrenuous for 2 weeks), - driving or machine use limit: (you may drive as long as not taking narcotic pain medication or having pain.) - Shower/bathe limit: (september shower beginning ) Diet: - Resume previous diet SPECIAL CARE INSTRUCTIONS: - May shower on , sponge bath around incisions and wash hair in meantime. On , remove outer dressings and let water run over area and pat dry. - Leave steri strips on for one week and then remove. - Call the surgeon's office with any questions or concerns - - (ex. temperature higher than 101 degrees F, excessive bleeding or pain). MEDICATIONS: - Resume previous medications unless instructed otherwise by your surgeon. - You may take extra strength Tylenol and Ibuprofen as needed for mild pain. - 650 mg Tylenol every 6 hours as needed - Ibuprofen 600 mg every 6 hours as needed (take with food) - Take antibiotics as prescribed for total course of 5 days FOLLOW UP VISIT: - Please call the office to schedule a two week follow-up appointment. Office number Pending Studies at Discharge: Yes (Pathology, will be reviewed at follow-up visit) Stand-Alone Forms: My [facility] Needcheck, Smoking Cessation Medications and DC Order Prescriptions: New ciprofloxacin HCl 500 mg tablet 500 mg PO BID Qty: 10 RF: 0 metronidazole 500 mg tablet 500 mg PO TID Qty: 15 RF: 0 Continued multivitamin Liquid 5 ml PO QAM RF: 0 cetirizine [Zyrtec] 10 mg Tablet 10 mg PO HS RF: 0 metoprolol succinate 100 mg tablet extended release 24 hr 100 mg PO QAM RF: 0 mometasone 50 mcg/actuation spray,non-aerosol 1 spray INTRANASAL BID RF: 0 coenzyme Q10 100 mg Capsule 100 mg PO BID RF: 0 omega 4-ggv-zyl-fish oil [Fish Oil] 1,000 mg (120 mg-180 mg) Capsule 2 cap PO BID RF: 0 vitamin K2 40 mcg Tablet 40 mcg PO QDD RF: 0 Calcium And Magnesium For Bone 1 tab PO BID RF: 0 Trace Minerals 1 oz PO BID RF: 0 selenium 200 mcg Tablet 0 mcg PO QDD RF: 0 cholecalciferol (vitamin D3) [Vitamin D3] 125 mcg (5,000 unit) Tablet 125 mcg PO HS RF: 0 [place] 2 tab PO HS RF: 0 Discharge Orders: Discharge Order (Routine); Ordered 12/22/19 Ordered By: Monik Parker Admission Data Admit Date/Time: 12/21/19 19:00 Attending Provider: Yecenia Grimaldo Admit Provider: Yecenia Grimaldo Primary Care Provider: PCP,NO Other Providers: Yecenia Grimaldo
[2019-12-22] MEDS ORDERED: SELENIUM PO SCH (16:30)
[2019-12-22] MEDS ORDERED: VITAMIN K2 40 MCG PO SCH (16:30)
== END 2019-12-22 16:30 | disposition home or self-care (01) ==
LOC: ED 10:46 → OR 16:59 → 3W 16:59